=== PATIENT | female | born 1950 ===

== ENCOUNTER → 2017-06-09 | Outpatient (CLI) | payer MEDICARE, OTHER ==
--- NOTE | 2017-06-09 13:32 | RADIOLOGY REPORT (SQ) ---
EXAM DESCRIPTION: MRI LT LOWER JOINT WITHOUT COMPLETED DATE/TIME: 06/09/2017 10:37 am REASON FOR STUDY: M25.562 PAIN IN LEFT KNEE M25.562 PAIN IN LEFT KNEE COMPARISON: None. TECHNIQUE: Leftknee images acquired and stored on PACS. Multiplanar images include fat sensitive se quences as T1, water sensitive sequences as FST2 or STIR, cartilage sensitive sequences as FSPD, and gradient echo sequences. LIMITATIONS: None. FINDINGS: JOINT AND BURSAE: No Torres's cyst or suprapatellar effusion BONE CORTEX AND MARROW: No marrow signal abnormalities worrisome for occult fracture or aggressive ma rrow replacement process from metastatic disease or myeloma. ACL: Diffusely abnormal. The ACL is diffusely high in signal with cystic degenerative change. There is a 4 x 2 cm cyst along the posterior knee joint soft tissues tracking between the dorsal aspect of the femoral condyles, best shown on coronal images 15-21, and sagittal images 11-14. There is an in tra osseous ganglion along the proximal attachment of the ACL involving the intercondylar distal femo ral subcortical bone, 3 x 2 cm in size on axial image 12, coronal image 14, and sagittal image 15. PCL: Intact. MCL: Intact. No periligamentous edema or fluid. LCL: Intact. No periligamentous edema or fluid. MEDIAL MENISCUS: Full-thickness tear along the posterior attachment medial meniscus best shown on cor onal image 17-19. Midbody medial meniscus is diffusely high in signal and enlarged likely reflecting degeneration, best shown on coronal image 15 and sagittal images 6-8 LATERAL MENISCUS: No tears. No abnormal signal. MEDIAL COMPARTMENT: Moderate chondromalacia. No bone bruises or reactive marrow edema. No osteophytes . LATERAL COMPARTMENT: Cartilage preserved. No bone bruises or reactive marrow edema. No osteophytes. PATELLA: Moderate midline patellar and lateral patellar facet chondromalacia. No subchondral cysts. M edial and lateral retinacula intact. EXTENSOR MECHANISM: Intact. Quadriceps and patella tendons normal. SOFT TISSUES: Adjacent muscles and subcutaneous tissues normal. Normal flow void in popliteal artery and vein. OTHER: No other significant finding. 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
== END ==
LOC: RAD 10:59
PROVIDERS: ATTEND Orthopaedic Surgery Sports Medicine
DX: M25.562 Pain in left knee (principal); S83.242A Other tear of medial meniscus, current injury, left knee, initial encounter; X58.XXXA Exposure to other specified factors, initial encounter; M22.42 Chondromalacia patellae, left knee